=== PATIENT | female | born 1930 | race Caucasian/White ===

== ENCOUNTER 2020-11-08 14:03 | Inpatient (IN) | payer OTHER ==
[~2020-11-08] VITALS: Ht 160 cm; Wt 83.2 kg
[~2020-11-08 14:03] MED LIST: ZESTRIL30 MG PO
[2020-11-08] MEDS ORDERED: HYDROCODON-ACE1 EAC4 PO (16:18)
[2020-11-08] MEDS ORDERED: ZOFRAN ODT 4 MG4 MG PO (16:19)
[2020-11-08 19:34] LABS: HEMOGLOBIN 7.8 gm/dl (12.3-15.3)
[2020-11-09 07:19] LABS: RED BLOOD COUNT 2.09 M/UL (4.00-5.10); WHITE BLOOD COUNT 14.5 K/UL (4.5-11.0)
[2020-11-09 07:55] LABS: HEMOGLOBIN 6.7 gm/dl (12.3-15.3)
[2020-11-09 15:45] LABS: HEMOGLOBIN 8.6 gm/dl (12.3-15.3)
[2020-11-09 18:50] LABS: HEMOGLOBIN 8.2 gm/dl (12.3-15.3)
[2020-11-10 02:50] LABS: HEMOGLOBIN 7.7 gm/dl (12.3-15.3); WHITE BLOOD COUNT 11.7 K/UL (4.5-11.0)
[2020-11-10 03:44] LABS: RED BLOOD COUNT 2.43 M/UL (4.00-5.10)
[2020-11-10 10:59] LABS: HEMOGLOBIN 7.5 gm/dl (12.3-15.3)
[2020-11-12 04:32] LABS: HEMOGLOBIN 7.3 gm/dl (12.3-15.3); RED BLOOD COUNT 2.36 M/UL (4.00-5.10); WHITE BLOOD COUNT 14.4 K/UL (4.5-11.0)
[2020-11-12] MEDS ORDERED: PROTONIX40 MG PO (09:41)
[2020-11-13 02:25] LABS: HEMOGLOBIN 7.2 gm/dl (12.3-15.3); RED BLOOD COUNT 2.35 M/UL (4.00-5.10); WHITE BLOOD COUNT 15.9 K/UL (4.5-11.0)
[2020-11-14 03:48] LABS: HEMOGLOBIN 7.7 gm/dl (12.3-15.3); RED BLOOD COUNT 2.58 M/UL (4.00-5.10); WHITE BLOOD COUNT 14.7 K/UL (4.5-11.0)
[2020-11-15 12:19] LABS: HEMOGLOBIN 8.5 gm/dl (12.3-15.3); WHITE BLOOD COUNT 13.6 K/UL (4.5-11.0)
[2020-11-15 12:23] LABS: RED BLOOD COUNT 2.84 M/UL (4.00-5.10)
[2020-11-16 02:24] LABS: HEMOGLOBIN 7.9 gm/dl (12.3-15.3); RED BLOOD COUNT 2.65 M/UL (4.00-5.10); WHITE BLOOD COUNT 14.7 K/UL (4.5-11.0)
[2020-11-17 11:07] LABS: HEMOGLOBIN 7.7 gm/dl (12.3-15.3); RED BLOOD COUNT 2.55 M/UL (4.00-5.10); WHITE BLOOD COUNT 12.8 K/UL (4.5-11.0)
--- NOTE | 2020-11-17 11:11 | NUR ---
SPOKE TO DR. SAHU RE PT GOING TO BE TRANSFERED TO MED SURG AND IF TELEMETRY NEEDED AND MD STATES NO TELE NEEDED
[2020-11-18 05:14] LABS: HEMOGLOBIN 7.4 gm/dl (12.3-15.3); RED BLOOD COUNT 2.46 M/UL (4.00-5.10); WHITE BLOOD COUNT 11.7 K/UL (4.5-11.0)
[2020-11-19 11:28] LABS: HEMOGLOBIN 9.1 gm/dl (12.3-15.3); WHITE BLOOD COUNT 9.8 K/UL (4.5-11.0)
[2020-11-19 11:38] LABS: RED BLOOD COUNT 3.07 M/UL (4.00-5.10)
--- NOTE | 2020-11-19 11:42 | NUR ---
PATIENT UP IN CHAIR TOLERATING WELL.
[2020-11-20 04:33] LABS: HEMOGLOBIN 8.5 gm/dl (12.3-15.3); RED BLOOD COUNT 2.89 M/UL (4.00-5.10); WHITE BLOOD COUNT 9.1 K/UL (4.5-11.0)
[2020-11-21 02:27] LABS: HEMOGLOBIN 8.4 gm/dl (12.3-15.3); RED BLOOD COUNT 2.91 M/UL (4.00-5.10)
[2020-11-21 02:35] LABS: WHITE BLOOD COUNT 6.7 K/UL (4.5-11.0)
[2020-11-22 03:56] LABS: HEMOGLOBIN 8.6 gm/dl (12.3-15.3); RED BLOOD COUNT 2.96 M/UL (4.00-5.10); WHITE BLOOD COUNT 6.9 K/UL (4.5-11.0)
[2020-11-22] MEDS ORDERED: FERROUS SULFAT325 M2 PO (11:27)
[2020-11-22] MEDS ORDERED: COLACE100 MG PO (11:27)
[2020-11-22] MEDS ORDERED: HYDROCODON-ACE1 EAC4 PO (11:27)
[2020-11-26 02:56] LABS: HEMOGLOBIN 8.6 gm/dl (12.3-15.3); RED BLOOD COUNT 2.96 M/UL (4.00-5.10); WHITE BLOOD COUNT 7.4 K/UL (4.5-11.0)
[2020-11-27 03:08] LABS: HEMOGLOBIN 8.8 gm/dl (12.3-15.3); RED BLOOD COUNT 2.99 M/UL (4.00-5.10)
[2020-11-27 03:09] LABS: WHITE BLOOD COUNT 9.3 K/UL (4.5-11.0)
[2020-11-28 09:29] LABS: HEMOGLOBIN 8.2 gm/dl (12.3-15.3); RED BLOOD COUNT 2.86 M/UL (4.00-5.10)
[2020-11-28 09:34] LABS: WHITE BLOOD COUNT 6.9 K/UL (4.5-11.0)
[2020-11-30] MEDS ORDERED: AMOX TR-K CLV1 EAC3 PO (09:45)
[2020-11-30] MEDS ORDERED: COLACE100 MG PO (09:58)
[2020-11-30] MEDS ORDERED: PROTONIX 40 MG40 M1 PO (09:58)
[2020-11-30] MEDS ORDERED: FERROUS SULFAT325 MG PO (09:58)
[2020-11-30] MEDS ORDERED: LASIX TAB 20 MG20 MG PO (10:00)
== END 2020-11-30 18:53 | disposition home health service (06) | DRG 377 ==
LOC: PROG CARE 15:50 → M/S 15:50
PROVIDERS: Internal Medicine; Physician Assistant; ADMIT Internal Medicine
PROC: 0W3P8ZZ Control Bleeding in Gastrointestinal Tract, Via Natural or Artificial Opening Endoscopic (ICD-10-PCS; 2020-11-09)
PROC: 30233N1 Transfusion of Nonautologous Red Blood Cells into Peripheral Vein, Percutaneous Approach (ICD-10-PCS; principal; 2020-11-18)
PROC: B24BZZ4 Ultrasonography of Heart with Aorta, Transesophageal (ICD-10-PCS; 2020-11-28)
DX: K26.4 Chronic or unspecified duodenal ulcer with hemorrhage (principal); G93.41 Metabolic encephalopathy; J69.0 Pneumonitis due to inhalation of food and vomit; I50.31 Acute diastolic (congestive) heart failure; D62 Acute posthemorrhagic anemia; E87.2 Acidosis; N17.9 Acute kidney failure, unspecified; I13.0 Hypertensive heart and chronic kidney disease with heart failure and stage 1 through stage 4 chronic kidney disease, or unspecified chronic kidney disease; E87.0 Hyperosmolality and hypernatremia; Z20.822 Contact with and (suspected) exposure to COVID-19; I07.1 Rheumatic tricuspid insufficiency; I35.0 Nonrheumatic aortic (valve) stenosis; I27.20 Pulmonary hypertension, unspecified; K29.60 Other gastritis without bleeding; N18.30 Chronic kidney disease, stage 3 unspecified; G89.29 Other chronic pain; F03.90 Unspecified dementia, unspecified severity, without behavioral disturbance, psychotic disturbance, mood disturbance, and anxiety; R53.81 Other malaise; K21.00 Gastro-esophageal reflux disease with esophagitis, without bleeding; L89.152 Pressure ulcer of sacral region, stage 2; L89.312 Pressure ulcer of right buttock, stage 2; Z79.1 Long term (current) use of non-steroidal anti-inflammatories (NSAID); Z87.310 Personal history of (healed) osteoporosis fracture
CPT/HCPCS: ECHO; 36415; 36430; 71045; 80048; 81001; 82550; 82553; 82607; 82728; 82746; 83540; 83550; 83735; 84132; 84484; 85014; 85018; 85025; 85027; 86850; 86900; 86901; 86920; 87040; 87086; 92526; 92610; 93005; 93306; 94640; 94664; 94760; 97110; 97110-GP-CQ; 97162; 97166; 97530; 97530-GP-CQ; A6212; C9113; J0696; J1335; J1756; J1940; J2250; J3010; J7030; J7040; J7050; P9016